=== PATIENT | male | born 1985 | race Caucasian/White ===

== ENCOUNTER 2018-01-18 11:38 | Emergency (ER) | payer OTHER ==
[2018-01-18 11:49] VITALS: BP 126/85; PULSE 82; RESP 16; O2SAT 94
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
[2018-01-18] MEDS ORDERED: KETOROLAC 15 MG/1 ML SDV IM ONE (11:56)
== END 2018-01-18 12:35 | disposition home or self-care (01) ==
LOC: CED 11:38
PROC: 2W2LX4Z Dressing of Right Lower Extremity using Bandage (ICD-10-PCS; principal; 2018-01-18)
DX: T25.221A Burn of second degree of right foot, initial encounter (principal); F17.200 Nicotine dependence, unspecified, uncomplicated; X12.XXXA Contact with other hot fluids, initial encounter; Y92.69 Other specified industrial and construction area as the place of occurrence of the external cause; Y99.0 Civilian activity done for income or pay; Y93.89 Activity, other specified
CPT/HCPCS: J1885

== ENCOUNTER 2018-03-01 10:12 | Emergency (ER) | payer OTHER ==
[2018-03-01] MEDS ORDERED: IBUPROFEN 600 MG TAB PO ONE (10:24)
--- NOTE | 2018-03-01 11:00 | EDPHY ---
H & P Time Seen by Provider: 03/01/18 10:20 HPI/ROS: 32 yo M presents c/o left little finger laceration, caught between a pole and another work instrument. Patient also states that 1 month ago he fell landing on an outstretched hand and believed he had sprained his left wrist. Noted on today's x-ray of his finger injury to have a left distal radius fracture. Review of systems As per HPI General no fever no chills no weakness HEENT no eye pain no eye discharge. No eye redness, no sore throat Respiratory no cough, no shortness of breath Cardiac no chest pain, no peripheral edema GI no abdominal pain, no diarrhea, no constipation, no nausea, no vomiting no flank pain, no hematuria, no dysuria Musculoskeletal no myalgias, no joint pain Heme no easy bruising, no easy bleeding Endo no polyuria, no polydipsia Skin no rashes, no pruritus Neuro no syncope, no dizziness, no headaches Psych is no suicidal ideation, no homicidal ideation Past Medical/Surgical History: Seasonal allergies Social History: Alcohol socially Smoking Status: Light smoker Physical Exam: 32-year-old male alert and oriented no acute distress nontoxic appearance Alert and oriented in no acute distress nontoxic appearance, afebrile Atraumatic normocephalic Neck no JVD Lungs clear to auscultation, no respiratory distress Heart regular rate and rhythm Extremities no cyanosis clubbing edema Left hand Left little finger-distal tip with laceration through nail and lateral aspect of little finger Good range of motion at the DIP, PIP, MCP laceration 1.5 cm distal tip with good cap refill, no evidence of necrosis Constitutional: Initial Vital Signs Temperature (C) 36.3 C 03/01/18 10:23 Heart Rate 104 H 03/01/18 10:23 Respiratory Rate 16 03/01/18 10:23 Blood Pressure 144/96 H 03/01/18 10:23 O2 Sat (%) 93 03/01/18 10:23 O2 Delivery Mode Room Air Allergies/Adverse Reactions: amoxicillin Allergy (Verified 03/01/18 10:20) Home Medications: Medication Instructions Recorded Zyrtec 01/18/18 Cephalexin 500 mg PO QID 7 Days #28 tablet 03/01/18 Medical Decision Making - Diagnostics Imaging Results: Imaging Impressions Finger X-Ray 04/17/18 10:20 Impression: 1. Comminuted displaced fifth digit distal tuft fracture with soft tissue laceration. 2. Apparent transversely-oriented fracture through the distal radial metaphysis. If there is further clinical concern, dedicated wrist radiographs should be considered. Findings were discussed with Yolanda Romero MD at 11:13, on 03/01/2018. Wrist X-Ray 03/01/18 12:06 Impression: Comminuted, minimally displaced intra-articular fracture of the distal left radius which is by clinical history subacute. Procedures: Procedure note-laceration Digital block with 2% xylocaine combined with 0.5% bupivacaine both without epinephrine The wound was irrigated with copious amounts of saline. 9 simple interrupted sutures were placed. 5-0 Ethilon was used. Patient tolerated procedure well. ED Course/Re-evaluation: pt seen and evaluted for left little finger injury at work X-ray Distal tuft fracture Left distal radius fracture, subacute Impression Left little finger with open distal tuft fracture Subacute left distal radius fracture Plan Sutured care left little finger laceration Patient placed on cephalexin for open fracture Recommend Velcro wrist splint for subacute distal radius fracture Given Orthopedics for referral Return in 10-12 days for suture removal Differential Diagnosis: Differential diagnosis considered but not limited to: Distal tuft fracture, open fracture, closed fracture, laceration, left wrist sprain, left wrist fracture - Data Points Medications Given: Discontinued Medications Cephalexin HCl (Keflex) 500 mg PO EDNOW ONE PRN Reason: Protocol Stop: 03/01/18 12:40 Last Admin: 03/01/18 12:47 Dose: 500 mg Ibuprofen (Motrin) 600 mg PO EDNOW ONE Stop: 03/01/18 10:25 Last Admin: 03/01/18 10:31 Dose: 600 mg Departure - Departure Disposition: Home, Routine, Self-Care Clinical Impression: Laceration of left little finger w/o foreign body with damage to nail, Open fracture of tuft of distal phalanx of finger, Fracture of left distal radius Condition: Good Instructions: Care For Your Stitches (ED), Laceration (ED), Finger Fracture (ED ), Wrist Fracture in Adults (ED) Referrals: NONE *PRIMARY CARE P,. [Primary Care Provider] - As per Instructions Mj Diaz MD [Medical Doctor] - As per Instructions Prescriptions: Cephalexin 500 mg PO QID 7 Days #28 tablet
[2018-03-01] MEDS ORDERED: ONDANSETRON DISINTEGRATING 4 MG TAB ONE (11:19)
[2018-03-01] MEDS ORDERED: CEPHALEXIN 500 MG CAP PO ONE (12:39)
[2018-03-01 13:24] VITALS: BP 132/76
== END 2018-03-01 12:55 | disposition home or self-care (01) ==
LOC: CED 10:12
PROC: 0HQGXZZ Repair Left Hand Skin, External Approach (ICD-10-PCS; principal; 2018-03-01)
DX: S62.637A Displaced fracture of distal phalanx of left little finger, initial encounter for closed fracture (principal); S61.317A Laceration without foreign body of left little finger with damage to nail, initial encounter; F17.200 Nicotine dependence, unspecified, uncomplicated; S52.572A Other intraarticular fracture of lower end of left radius, initial encounter for closed fracture; W23.0XXA Caught, crushed, jammed, or pinched between moving objects, initial encounter; Y92.69 Other specified industrial and construction area as the place of occurrence of the external cause; Y99.0 Civilian activity done for income or pay; Y93.89 Activity, other specified
CPT/HCPCS: 73110-PO; 73140-PO